=== PATIENT | male | born 1995 | race Caucasian/White ===

== ENCOUNTER 2020-05-21 14:02 | Outpatient (CLI) | payer OTHER, SELFPAY ==
--- NOTE | ~2020-05-21 | XR_ITS ---
XR lumbar spine 2-3V DATE: 05/21/2020 14:42 INDICATION: Low thoracic and upper lumbar numbness and tingling for 2 months. No known injury. TECHNIQUE: AP, lateral, coned lateral lumbosacral views COMPARISON: 05/21/2020 thoracic spine FINDINGS: There is a transitional lumbosacral vertebra with lumbarization on the right and sacralizat ion on the left. No fracture or bone destruction is evident. Normal alignment of the lumbar vertebrae. The lumbar pedi cles are intact. Lumbar and lumbosacral interspaces are well preserved. The sacroiliac joints appear normal. IMPRESSION: Transitional lumbosacral vertebra Reviewed, dictated and finalized at [facility].
--- NOTE | ~2020-05-21 | XR_ITS ---
XR thoracic spine 3V DATE: 05/21/2020 14:43 INDICATION: Lower thoracic and upper lumbar numbness and tingling for 2 months. No known injury. TECHNIQUE: AP, lateral, swimmer views COMPARISON: 05/21/2020 lumbar spine FINDINGS: No scoliosis. No fracture or dislocation or bone destruction. The thoracic pedicles are int act. No paraspinal soft tissue thickening. IMPRESSION: Negative Reviewed, dictated and finalized at [facility]. IMPRESSION: Negative
== END 2020-05-21 14:03 | disposition home or self-care (01) ==
PROVIDERS: PCP Nurse Practitioner Family; Visit Provider Nurse Practitioner Family
DX: M54.6 Pain in thoracic spine (principal)
CPT/HCPCS: 72072; 72100

== ENCOUNTER 2020-06-05 13:05 | Emergency (ER) | payer OTHER, SELFPAY ==
[2020-06-05 13:46] VITALS: BP 134/106; PULSE 112; RESP 18; TEMP 36.5; O2SAT 96
--- NOTE | 2020-06-05 14:25 | ED.MALEGU ---
HPI - Male Genitourinary General Chief complaint: Urogenital-Male Stated complaint: lumps on testicles Time Seen by Provider: 06/05/20 14:25 Source: patient Mode of arrival: ambulatory Limitations: no limitations History of Present Illness HPI Narrative: 25-year-old man comes in today complaining of lumps and pain in his testicles that has been present for some time. Patient states that he was seen at another facility where he had an ultrasound and was told that he had dilated blood vessels. He states that he has had some nausea and sweats and abdominal pain and that is scrotal pain is continuous. The pain is more on the left today. He states that he has a appointment with his primary care doctor at 4:30 a.m. Patient states that he is also likely withdrawing from alcohol as he is a regular drinker and recently abstained. He denies new sexual partners, dysuria, hematuria, and discharge. MD Complaint: testicle pain Onset (ago): week(s) Duration: constant Location: right testicle and left testicle Radiation: abdomen Severity: moderate Quality: aching Relieving factors: none Exacerbating factors: none Associated symptoms: Reports nausea/vomiting Related Data Home Medications Medication Instructions Recorded Confirmed No Home Medications 06/05/20 06/05/20 Allergies Allergy/AdvReac Type Severity Reaction Status Date / Time No Known Allergies Allergy Verified 06/05/20 13:57 Review of Systems Constitutional: Constitutional: Denies chills and Denies fever(s) Eyes: Eyes: Denies change in vision and Denies photophobia ENT: Denies nasal congestion and Denies sore throat Respiratory: Respiratory: Denies cough, Denies dyspnea and Denies wheezing Gastrointestinal: Gastrointestinal: Denies abdominal pain, Reports nausea and Reports vomiting Genitourinary: Genitourinary: Reports as per HPI, Denies hematuria, Denies dysuria, Reports testicular pain and Denies urinary frequency Musculoskeletal: Musculoskeletal: Denies back pain, Denies arthralgias and Denies joint swelling Integumentary/Breasts: Skin/Breast: Denies pruritus, Denies erythema and Denies rash Neurologic: Denies vertigo, Denies dizziness and Denies syncope Hematologic/Lymphatic: Hematologic/Lymphatic: Denies easy bleeding and Denies easy bruising Allergic/Immunologic: Allergic/Immunologic: Denies lip swelling and Denies tongue swelling [facility] Social History Social History (Updated 06/05/20 @ 15:24 by Teofilo Merlos MD) Smoking status: Never smoker Alcohol intake: current Alcohol use details: daily Substance use: never Living arrangements: with family Exam Const: General: alert Orientation/consciousness: oriented to person, oriented to place and oriented to time Other: Mild acute distress anxious Eyes: Conjunctivae: conjunctivae normal Pupils: Equal, round and reactive pupils present EOM: EOMs intact bilaterally Resp: Effort & Inspection: normal respiratory effort and not labored Auscultation: clear to auscultation bilaterally, no rales, no rhonchi and no wheezes Cardio: Rate: regular rate Rhythm: regular rhythm Heart sounds: no murmurs : Male General Exam: Yes normal external exam Testes: no testicular swelling and testicular tenderness ( Very mild epididymal tenderness. No erythema, distinct masses or rash.) Other: No masses. Normal testicular position. Skin: General skin exam: normal color, no jaundice and no pallor Rashes: no rashes Neuro: General: patient oriented x3, moves all extremities and no focal motor deficits Cranial nerves: Yes CN's II-XII intact bilaterally Speech: normal speech Gait exam (Neuro): Normal gait present Extrem: General: normal to inspection and no clubbing, cyanosis or edema Psych: Appearance: grossly normal and well kempt Mental Status: mental status grossly normal Affect: normal affect Attitude: cooperative Thought content: Yes Normal thought content present Course C
[2020-06-05 15:40] VITALS: BP 141/96; PULSE 102
[2020-06-05 15:44] LABS: Add Urine Microscopic? YES; Appearance Urine Clear (Clear); Bilirubin Urine Negative (Negative); Blood Urine 1+ (Negative); Color Urine Yellow (Yellow); Glucose Urine UA Negative (Negative); Ketones Urine Negative (Negative); Leukocyte Esterase Ur Negative (Negative); Nitrate Urine Negative (Negative); Protein Urine Negative (Negative); Specific Grav Ur <= 1.005 (1.010-1.020); Urobilinogen Urine 0.2 mg/dL (0.2-1.0)
[2020-06-05 15:55] LABS: Bacteria Urine Trace /hpf; Squamous Epithelial Cell Urine Rare /hpf (Few); WBC Urine 0-3 /hpf (0-3)
== END 2020-06-05 15:41 | disposition home or self-care (01) ==
PROVIDERS: Emergency Provider Emergency Medicine
DX: N50.812 Left testicular pain (principal); N50.811 Right testicular pain
CPT/HCPCS: 81001; 87086; 87491; 87591; 99281; 99283

== ENCOUNTER 2021-07-05 20:37 | Emergency (ER) | payer OTHER, SELFPAY ==
[2021-07-05 20:48] VITALS: BP 125/77; PULSE 89; RESP 16; TEMP 36.7; O2SAT 98
--- NOTE | 2021-07-05 20:52 | ED.BACK ---
HPI - Back Pain/Injury General Chief Complaint: Back Pain/Injury Stated Complaint: back pain Time Seen by Provider: 07/05/21 20:55 Source: patient and RN notes reviewed Mode of arrival: ambulatory Limitations: no limitations History of Present Illness HPI Narrative: Patient has been having thoracic pain and back pain for over year. He had x-rays done in April of his thoracic and lumbar spine that are completely normal. He is very concerned about having cancer and wants to know if he should have a CT scan. I explained that routine workups should be done as an outpatient through his primary care physician. He also asked me about a mole on his back he has had for many years but is not growing. He also asked about a hard verrucous lesion on his left forearm. MD elicited complaint: back pain Pertinent past history: prior back pain Onset (ago): year(s) (1) Timing: constant Severity: moderate Similar Symptoms Previously: Yes Quality: dull and aching Location: thoracic spine Radiation: none Exacerbating factors: movement and walking Relieving factors: none Context: while lifting and bending Associated symptoms: denies other symptoms Related Data Home Medications Medication Instructions Recorded Confirmed No Home Medications 06/05/20 06/05/20 Allergies Allergy/AdvReac Type Severity Reaction Status Date / Time No Known Allergies Allergy Verified 07/05/21 21:10 Review of Systems Review of Systems: No abnormal weight loss. No other musculoskeletal pain. All systems reviewed & are unremarkable except as noted in HPI and below PMFSH Past Medical History Medical History (Updated 07/05/21 @ 21:13 by Daniel Leyva MD) No active medical problems Social History Social History (Updated 07/05/21 @ 21:33 by Daniel Leyva MD) Smoking status: Never smoker Alcohol intake: former Alcohol use details: quit two moths ago Substance use: never Exam Const: General: healthy appearing, no acute distress and alert Nutritional Appearance: well nourished and thin Orientation/consciousness: patient oriented x3 HENMT: Head: normal to inspection Ears: external ears normal Face and sinus: normal facial exam Eyes: Conjunctivae: conjunctivae normal Pupils: Equal, round and reactive pupils present EOM: EOMs intact bilaterally Neck: Neck: normal visual inspection Resp: Effort & Inspection: normal respiratory effort Auscultation: clear to auscultation bilaterally Cardio: Rate: regular rate Rhythm: regular rhythm GI: Auscultation: normal bowel sounds Back/Spine/Pelvis: Cervical Spine: cervical ROM normal Thoracic/Lumbar Spine: thoraco-lumbar ROM normal and thoracic spinal tenderness (mild) at T3, at T4, at T5 and at T6 Skin: General skin exam: normal color Other: Small verrucous lesion on left dorsal forearm. Benign nevus upper right midback Discharge Plan Discharge Clinical Impression: Back pain, thoracic Qualifiers: Chronicity: acute Back pain laterality: midline Qualified Code(s): M54.6 - Pain in thoracic spine Patient Disposition: Home, Self-Care Condition: Stable Instructions: Thoracic Back Strain (ED) Additional Instructions: establish yourself with a primary care physician. Discussed with them whether you should have further evaluation of your back pain. Can use Aleve or Advil [id number] as needed for back pain. Prescriptions: No Action No Home Medications RF: 0 Follow-up/Referrals: UNKNOWN,DOCTOR [Primary Care Provider] - Stand Alone Forms: Work/School Release IP Time of Disposition: 21:13
[2021-07-05] MEDS: KETOROLAC (*BKC) 60 MG/2 ML VIAL IM (21:19)
== END 2021-07-05 21:38 | disposition home or self-care (01) ==
PROVIDERS: Emergency Provider Emergency Medicine
DX: M54.6 Pain in thoracic spine (principal)
CPT/HCPCS: 96372; 99283; J1885

== ENCOUNTER 2021-07-14 02:02 | Emergency (ER) | payer OTHER, SELFPAY ==
--- NOTE | ~2021-07-14 | CT_ITS ---
EXAMINATION: CT facial bones wo con DATE: 07/14/2021 02:30 INDICATION: Facial injury. Nasal pain. TECHNIQUE: Computed tomography (CT) of the facial bones and maxillofacial region was performed withou t intravenous contrast. Automated exposure control and iterative reconstruction technique were employ ed. Exam dose: 239.43 mGy-cm total exam DLP. COMPARISON: None. FINDINGS: Minimally displaced left nasal plate fracture. The Fosamax sutures, orbital rims and cervantes, zygomatic arches and remainder of the facial bones are i ntact. Normal alignment at the temporomandibular joints. No mandible fracture. Paranasal sinuses and mastoid air cells are normally developed and aerated. IMPRESSION: Minimally displaced left nasal plate fracture Reviewed, dictated and finalized at [facility]. Reviewed, dictated and finalized at location [facility].
[2021-07-14 02:05] VITALS: BP 145/90; PULSE 110; TEMP 36.4; O2SAT 98
--- NOTE | 2021-07-14 02:19 | PC.NURSE ---
pt very nervous, pacing in and out of room
--- NOTE | 2021-07-14 03:12 | PC.NURSE ---
PT with police, still acting erratically.
--- NOTE | 2021-07-14 03:33 | ED.GENADULT ---
HPI - General Adult General Chief complaint: Unspecified Stated complaint: nose pain Source: patient Mode of arrival: ambulatory Limitations: no limitations History of Present Illness HPI narrative: this is a 26 U of male that presents with swollen nose after he claims that he fell on a pool table causing causing swelling of nose with no other injuries no shortness of breath breathing easy pain level is stable no head injury no loss of consciousness. The patient is belligerent and police were called and currently in handcuffs. Onset (ago): hour(s) Location: face Radiation: non-radiation Severity: mild Related Data Home Medications Medication Instructions Recorded Confirmed No Home Medications 06/05/20 07/14/21 Allergies Allergy/AdvReac Type Severity Reaction Status Date / Time No Known Allergies Allergy Verified 07/05/21 21:10 Review of Systems Review of Systems: All systems reviewed & are unremarkable except as noted in HPI and below PMFSH Past Medical History Medical History No active medical problems Social History Social History Smoking status: Never smoker Alcohol intake: former Alcohol use details: quit two moths ago Substance use: never Exam Const: General: cooperative, healthy appearing and comfortable HENMT: Head: normal to inspection Ears: hearing grossly normal bilaterally General nose exam: Normal nasal mucous membranes and turbinates present Face and sinus: other ( Nasal bridge swelling) Mouth: Yes Normal oral and palatal mucosa present and Yes lip normal Teeth and gingiva: dentition normal Throat: posterior oropharynx normal Eyes: General: appearance normal, both eyes and all related structures EOM: EOMs intact bilaterally Neck: Neck: normal visual inspection, full ROM, no lymphadenopathy and no meningeal signs Chest: Chest palpation & inspection: normal inspection of the chest and normal palpation of entire chest wall Resp: Effort & Inspection: normal respiratory effort Cardio: Jugular venous distension: no JVD Palpation: normal PMI Rate: regular rate Rhythm: regular rhythm GI: Inspection: normal to inspection : General: Yes bimanual renal exam normal bilaterally Back/Spine/Pelvis: Back: no CVA tenderness Skin: General skin exam: normal color and no rashes or lesions noted Neuro: General: oriented to person, oriented to place and oriented to time Extrem: General: normal to inspection Psych: Appearance: grossly normal and well kempt Course Course Emergency Course: explained to the patient that we do not simply pop in his nasal bones into place, the patient would not take that as an answer. Was belligerent police called patient in handcuffs currently reviewed CT scan of his facial bones which showed acute nasal bone fracture with mild displacement. Currently no nasal epistaxis or bleeding. Vital Signs Vital signs: Vital Signs Temperature 36.4 C 07/14/21 02:05 Pulse Rate 110 H 07/14/21 02:05 Blood Pressure 145/90 H 07/14/21 02:05 Pulse Oximetry 98 07/14/21 02:05 Temperature 36.4 C 07/14/21 02:05 Pulse Rate 110 H 07/14/21 02:05 Blood Pressure 145/90 H 07/14/21 02:05 Pulse Oximetry 98 07/14/21 02:05 Medical Decision Making Vital Signs Vital Signs: Vital Signs Temperature 36.4 C 07/14/21 02:05 Pulse Rate 110 H 07/14/21 02:05 Blood Pressure 145/90 H 07/14/21 02:05 Pulse Oximetry 98 07/14/21 02:05 Temperature 36.4 C 07/14/21 02:05 Pulse Rate 110 H 07/14/21 02:05 Blood Pressure 145/90 H 07/14/21 02:05 Pulse Oximetry 98 07/14/21 02:05 Critical Care Time Critical Care Time Critical Care Time: No Discharge Plan Discharge Clinical Impression: Closed fracture nasal bone Qualifiers: Encounter type: initial encounter Qualified Code(s): S02.2XXA - Fracture of nasal bones,
== END 2021-07-14 03:51 | disposition home or self-care (01) ==
PROVIDERS: Emergency Provider Emergency Medicine
DX: S02.2XXA Fracture of nasal bones, initial encounter for closed fracture (principal); W19.XXXA Unspecified fall, initial encounter
CPT/HCPCS: 70486; 99284